=== PATIENT | female | born 1935 | race Caucasian/White ===

== ENCOUNTER → 2018-11-24 | Outpatient (CLI) | payer OTHER, MEDICARE | END | disposition home or self-care (01) | LOC: OIH 10:21 | PROVIDERS: ATTEND Internal Medicine | DX: I10 Essential (primary) hypertension (principal); I70.0 Atherosclerosis of aorta; M47.815 Spondylosis without myelopathy or radiculopathy, thoracolumbar region; M41.9 Scoliosis, unspecified | CPT/HCPCS: 71046 ==

== ENCOUNTER → 2020-05-30 | Outpatient (CLI) | payer OTHER, MEDICARE | END | disposition home or self-care (01) | LOC: OIH 11:22 | PROVIDERS: ATTEND Internal Medicine | DX: M47.24 Other spondylosis with radiculopathy, thoracic region (principal); R10.11 Right upper quadrant pain; R10.13 Epigastric pain; G95.89 Other specified diseases of spinal cord; M25.78 Osteophyte, vertebrae; G95.20 Unspecified cord compression | CPT/HCPCS: 72070 ==